=== PATIENT | female | born 1990 | race Caucasian/White ===

== ENCOUNTER 2017-08-03 18:30 | Emergency (ER) | payer OTHER ==
[2017-08-03 18:37] VITALS: BP 130/93; PULSE 88; TEMP 98.4; BMI 21.4
[2017-08-03] MEDS ORDERED: valACYclovir HCL 1000 MG TABLET PO ONE (18:41)
[2017-08-03] MEDS ORDERED: valACYclovir HCL 500 MG TABLET (FP) ONE (18:42)
--- NOTE | 2017-08-03 18:52 | PDOC ---
History of Present Illness <Khoa Renae - Last Filed: 08/03/17 18:59> - History of Present Illness Initial Comments: 08/03/17 18:56 "The patient is a 27 year old female, with no significant past medical history, who presents to the emergency department with, a rash on the left forehead beginning approx.one day ago. The patient reports having a tingling sensation on the left side of the face and left eye pain that started yesterday. Today she began to notice a red rash on her forehead and in her scalp, only on the left side. The patient reports being diagnosed with chicken pox as a child and believes she may have shingles. She denies blurry vision or loss of vision. She denies recent fevers, chills, headache or dizziness. She denies recent nausea, vomit, diarrhea or constipation. She denies recent dysuria, frequency, urgency or hematuria. She denies recent chest pain or shortness of breath. Allergies: NKA Past surgical history: None reported. Social history: Nonsmoker. Denies EtOH use and recreational drug use. " <Duc Bowen - Last Filed: 08/03/17 19:02> - General Chief Complaint: Rash Stated Complaint: left scalp rash Time Seen by Provider: 08/03/17 18:33 Past History <Khoa Renae - Last Filed: 08/03/17 18:59> - Past Medical History COPD: No DVT: No - Suicide/Smoking/Psychosocial Hx Smoking History: Never smoked Hx Alcohol Use: No Drug/Substance Use Hx: No Substance Use Type: Alcohol <Duc Bowen - Last Filed: 08/03/17 19:02> - Past Medical History Allergies/Adverse Reactions: Allergies Allergy/AdvReac Type Severity Reaction Status Date / Time No Known Allergies Allergy Verified 08/03/17 18:31 Home Medications: Ambulatory Orders Loteprednol Etabonate [Lotemax] 3 drop OP BID #1 bot 08/03/17 Valacyclovir HCl [Valtrex -] 1,000 mg PO TID #21 tablet 08/03/17 Review of Systems - Review of Systems Comments:: 08/03/17 18:57 " GENERAL/CONSTITUTIONAL: No fever or chills. No weakness. HEAD, EYES, EARS, NOSE AND THROAT: +Left eye pain. No change in vision. No ear pain or discharge. No sore throat. CARDIOVASCULAR: No chest pain or shortness of breath. RESPIRATORY: No cough, wheezing, or hemoptysis. GASTROINTESTINAL: No nausea, vomiting, diarrhea or constipation. GENITOURINARY: No dysuria, frequency, or change in urination. MUSCULOSKELETAL: No joint or muscle swelling or pain. No neck or back pain. SKIN: +Rash left forehead. NEUROLOGIC: No headache, vertigo, loss of consciousness, or change in strength/ sensation. ENDOCRINE: No increased thirst. No abnormal weight change. HEMATOLOGIC/LYMPHATIC: No anemia, easy bleeding, or history of blood clots. ALLERGIC/IMMUNOLOGIC: No hives or skin allergy. " <Duc Bowen - Last Filed: 08/03/17 19:02> *Physical Exam - Vital Signs Last Vital Signs Temp Pulse Resp BP Pulse Ox 98.4 F 88 18 130/93 100 08/03/17 18:30 08/03/17 18:30 08/03/17 18:30 08/03/17 18:30 08/03/17 18:30 <Khoa Renae - Last Filed: 08/03/17 18:59> - Vital Signs Last Vital Signs Temp Pulse Resp BP Pulse Ox 98.4 F 88 18 130/93 100 08/03/17 18:30 08/03/17 18:30 08/03/17 18:30 08/03/17 18:30 08/03/17 18:30 - Physical Exam Comments: 08/03/17 18:57 "GENERAL: Awake, alert, and fully oriented, in no acute distress HEAD: No signs of trauma EYES: PERRLA, EOMI, sclera anicteric, conjunctiva clear, visual acuity normal ENT: Auricles normal inspection, hearing grossly normal, nares patent, oropharynx clear without exudates. Moist mucosa NECK: Nontender, no stepoffs, Normal ROM, supple, no lymphadenopathy, JVD, or masses LUNGS: Breath sounds equal, clear to auscultation bilaterally. No wheezes, and no crackles HEART: Regular rate and rhythm, normal S1 and S2, no murmurs, rubs or gallops ABDOMEN: Soft, nontender, normoactive bowel sounds. No guarding, no rebound. No masses EXTREMITIES: Normal range of motion, no edema. No clubbing or cyanosis. No cords, erythema, or tenderness NEUROLOGICAL: Cranial nerves II through XII intact. 5/5 strength and sensation in all extremities, Normal speech, normal gait SKIN: small erythematous macules on L forehead and scalp in V1 distribution, no vesicles or crusting lesions, + hyperesthesia " <Duc Bowen - Last Filed: 08/03/17 19:02> ED Treatment Course - Medications Given in the ED: ED Medications Discontinued Medications Generic Name Dose Route Start Last Admin Trade Name Farzana PRN Reason Stop Dose Admin Valacyclovir HCl 1,000 mg 08/03/17 18:41 08/03/17 18:43 Valtrex - PO 08/03/17 18:42 1,000 mg ONCE ONE Administration <Khoa Renae - Last Filed: 08/03/17 18:59> Medical Decision Making - Medical Decision Making 08/03/17 18:54 27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 Pt has clinical signs of shingles rash on L forehead in V1 distribution. No evidence of herpes zoster ophthalmicus at this time, but pt does complain of pain in her eye. I spoke with Dr. Delatorre ophthdiane interior surface insulation worker, who recommends valacyclovir and Lotemax eye drops. He will see her in clinic at 9 am tomorrow. I discussed the physical exam findings, ancillary test results and final diagnoses with the patient. I answered all of the patient's questions. The patient was satisfied with the care received and felt comfortable with the discharge plan and treatment plan. <Duc Bowen - Last Filed: 08/03/17 19:02> *DC/Admit/Observation/Transfer - Attestations Scribe Attestion: 08/03/17 18:59 Documentation prepared by Khoa Renae, acting as medical billing and coding specialist for Duc Bowen MD. <Khoa Renae - Last Filed: 08/03/17 18:59> - Attestations Physician Attestion: 08/03/17 18:54 I, Dr. Duc Bowen MD, attest that this document has been prepared under my direction and personally reviewed by me in its entirety. I further attest, that it accurately reflects all work, treatment, procedures and medical decision -making performed by me. <Duc Bowen - Last Filed: 08/03/17 19:02> Diagnosis at time of Disposition: Shingles - Discharge Dispostion Disposition: HOME Condition at time of disposition: Stable - Prescriptions Prescriptions: Loteprednol Etabonate [Lotemax] 3 drop OP BID #1 bot Valacyclovir HCl [Valtrex -] 1,000 mg PO TID #21 tablet - Referrals Referrals: Alin Delatorre MD [Staff Physician] - - Patient Instructions Printed Discharge Instructions: DI for Shingles, DI for [place] Ricardo Syndrome Additional Instructions: Take the Valacyclovir as prescribed to treat your shingles rash. Use the Lotemax eye drops as directed to prevent damage to your eye. You will likely develop more red lesions in your scalp and forehead in the coming days. If you experience any severe eye pain, blurred vision, fevers, severe headache, or any other concerning symptoms, return to the ER immediately. Any shingles rash involving the forehead can potentially affect your eye and cause permanent damage. You need to see an psychiatric nursing assistant TOMORROW for a full eye evaluation. Dr. Delatorre is expecting to see you in eye clinic tomorrow morning at 9AM. His office is located at [address] [place] [address]. Call the number provided if you have any questions.
== END 2017-08-03 19:05 | disposition home or self-care (01) ==
LOC: FER 18:30
DX: B02.9 Zoster without complications (principal)
CPT/HCPCS: 99281-25